=== PATIENT | male | born 1945 | race Caucasian/White ===

== ENCOUNTER → 2019-04-19 | Outpatient (CLI) | payer MEDICARE ==
[~2019-04-19] MED LIST: REGADENOSON 0.4 MG/5 ML SYRINGE ONE
== END | disposition home or self-care (01) ==
LOC: CFH 11:41
PROVIDERS: ATTEND Internal Medicine Cardiovascular Disease
DX: R94.31 Abnormal electrocardiogram [ECG] [EKG] (principal); I10 Essential (primary) hypertension; I25.2 Old myocardial infarction
CPT/HCPCS: 78452; 93017; A9502; J2785